=== PATIENT | female | born 1995 | race Caucasian/White ===

== ENCOUNTER 2016-10-28 05:36 | Inpatient (IN) ==
[2016-10-28] MEDS ORDERED: STADOL IV PRN (05:38)
[2016-10-28] MEDS ORDERED: KEFZOL 1 GM/D5W 1 GM/50 ML IVPB IV PRN (05:38)
[2016-10-28] MEDS ORDERED: PEPCID IV PRN (05:38)
[2016-10-28] MEDS ORDERED: TYLENOL PO PRN (05:38)
[2016-10-28] MEDS ORDERED: PEPCID PO PRN (05:38)
[2016-10-28] MEDS ORDERED: ZOFRAN IV PRN (05:38)
[2016-10-28] MEDS ORDERED: SODIUM CHLORIDE 0.9% INJ SCH (05:45)
[2016-10-28] MEDS: LR 1,000 ML IV SCH ×2 (06:25→08:30)
[2016-10-28 06:41] LABS: MANUAL DIFF NEEDED? NO
[2016-10-28 06:52] LABS: BASO% 0.5 % (0.0-0.8); EOS# 0.27 X1000 (0.0-0.7); EOS% 3.1 % (0.0-10.0); HEMATOCRIT 31.4 % (37.0-47.0); IMM GRAN# 0.05 X1000 (0.0-0.04); IMM GRAN% 0.6 % (0.0-0.5); LYMPH% 30.6 % (20.5-51.1); MCHC 31.8 g/dL (33-37); MCV 72.4 FL (81-99); MONO# 0.79 X1000 (0.11-0.59); NEUT% 56.2 % (42.2-75.2); PLT 217 X1000 (130-400); RBC 4.34 XMIL (4.2-5.4)
[2016-10-28 06:57] LABS: URINE SOURCE VOIDED
[2016-10-28 07:03] LABS: UR AMPHETAMINES QUAL NONE DETECTED (NONE DETECT); UR BARBITUATES QUAL NONE DETECTED (NONE DETECT); UR BENZODIAZEPIN QUAL NONE DETECTED (NONE DETECT); UR CANNABINOIDS QUAL NONE DETECTED (NONE DETECT); UR COCAINE QUAL NONE DETECTED (NONE DETECT); UR MDMA QUAL NONE DETECTED (NONE DETECT); UR METHADONE QUAL NONE DETECTED (NONE DETECT); UR METHAMPHETAMINE QUAL NONE DETECTED (NONE DETECT); UR OPIATES QUAL NONE DETECTED (NONE DETECT); UR OXYCODONE QUAL NONE DETECTED (NONE DETECT); UR PCP QUAL NONE DETECTED (NONE DETECT); UR TCA QUAL NONE DETECTED (NONE DETECT)
[2016-10-28 07:08] LABS: BILIRUBIN URINE NEGATIVE (NEGATIVE); CLARITY CLEAR (CLEAR); COLOR YELLOW; GLUCOSE URINE NEGATIVE (NEGATIVE)
[2016-10-28] MEDS ORDERED: FENTANYL-BUPIV-NS 2 MCG-0.1% 200 ML EPIDURAL PRN (07:14)
[2016-10-28] MEDS: PITOCIN 30 UNITS/LR 30 UNITS/500 ML IV.SOLN IV SCH ×2 (07:21→08:00)
[2016-10-28] MEDS ORDERED: MINERAL OIL ONE (09:40)
[2016-10-28] MEDS ORDERED: XYLOCAINE-MPF 1% ONE (09:40)
[2016-10-28] MEDS ORDERED: PITOCIN 20 UNITS/LR 20 UNITS/1,000 ML IV.SOLN ONE (09:40)
[2016-10-28 09:41] LABS: BLOOD URINE 4+ (NEGATIVE); LEUKOCYTES URINE 2+ (NEGATIVE); NITRITE URINE NEGATIVE (NEGATIVE); PROTEIN URINE NEGATIVE (NEGATIVE); UROBILINOGEN URINE NORMAL
[2016-10-28] MEDS ORDERED: MINERAL OIL TOP ONE (12:58)
[2016-10-28] MEDS ORDERED: XYLOCAINE-MPF 1% INJ ONE (12:58)
--- NOTE | 2016-10-28 16:43 | OPERATIVE NOTE ---
PROCEDURE DATE: 10/28/2016 PREDELIVERY DIAGNOSES: 1. Intrauterine at 39 weeks. 2. Late care. 3. Former smoker. POST DELIVERY DIAGNOSES: 1. Intrauterine at 39 weeks. 2. Late care. 3. Former smoker. PROCEDURE: Vaginal delivery. PHYSICIAN: Dr. Villegas. ANESTHESIA: and an epidural. FINDINGS: Viable female 6 pounds 14 ounces, 9-10 Apgars. Placenta was spontaneous and intact. Cord was 3 vessels. There were no lacerations or tears and all counts were correct. Please refer to Ms. Sanchez's records. She started at 31 weeks. No abnormal laboratory values. O positive blood type. Immune to rubella. She stated that she is former smoker however she is not smoking at this time. Her GBS was negative and ultrasound matched her dates so due date was established to be 11/03 so this morning she was admitted, started on Pitocin, artificially ruptured. Received epidural anesthesia. Made steady progress. Before becoming complete at approximately 3:30 began pushing soon after crowned at which point the bed was broken down. She was prepped and draped. With continued pushing she delivered a viable female , occiput anterior over an intact perineum. Once head delivered anterior shoulder which was her left shoulder some difficulty delivering it however it did slide under the pubic bone and baby delivered without distress and placed on mother's abdomen. Cord doubly clamped and cut. Care of infant taken over by nursery personnel. Cord blood was obtained and a 3-vessel cord was noted then gentle traction on the cord resulted in delivery of the placenta after approximately 4 minutes. It was inspected and found to be intact. After this was done inspection of the vagina and perineum did not reveal any clots or lacerations or foreign material. All counts were correct. ESTIMATED BLOOD LOSS: 100 mL. Expect routine . cc: Espinoza Villegas MD
[2016-10-28] MEDS ORDERED: PITOCIN IM PRN (16:52)
[2016-10-28] MEDS ORDERED: BENADRYL IV PRN (16:52)
[2016-10-28] MEDS ORDERED: XYLOCAINE-MPF 1% INJ PRN (16:52)
[2016-10-28] MEDS ORDERED: AMBIEN PO PRN (16:52)
[2016-10-28] MEDS ORDERED: HYDROXYZINE IM PRN (16:52)
[2016-10-28] MEDS ORDERED: PITOCIN 30 UNITS/LR 30 UNITS/500 ML IV.SOLN IV ONE (16:52)
[2016-10-28] MEDS ORDERED: PERI MEDS (DERMOPLAST/NUPERCAINAL/TUCKS) MISC PRN (16:52)
[2016-10-28] MEDS ORDERED: CYTOTEC PO PRN (16:52)
[2016-10-28] MEDS ORDERED: M-M-R II VACCINE SUBQ ONE (16:52)
[2016-10-28] MEDS ORDERED: MINERAL OIL PO PRN (16:52)
[2016-10-28] MEDS ORDERED: BOOSTRIX VACCINE IM ONE (16:52)
[2016-10-28] MEDS ORDERED: BENADRYL PO PRN (16:52)
[2016-10-28] MEDS ORDERED: PITOCIN 20 UNITS/LR 20 UNITS/1,000 ML IV.SOLN IV SCH (16:52)
[2016-10-28] MEDS ORDERED: NORCO-5 PO PRN (16:52)
[2016-10-28] MEDS ORDERED: HYDROXYZINE PO PRN (16:52)
[2016-10-28] MEDS: NORCO-10 PO PRN (18:59)
[2016-10-28] MEDS: MOTRIN PO PRN (18:59)
[2016-10-28] MEDS: PERICOLACE PO SCH (21:15)
[2016-10-29] MEDS: NORCO-10 PO PRN ×3 (04:43→23:30)
[2016-10-29 06:54] LABS: BASO% 0.5 % (0.0-0.8); EOS# 0.34 X1000 (0.0-0.7); EOS% 3.1 % (0.0-10.0); HEMATOCRIT 28.9 % (37.0-47.0); HEMOGLOBIN 9.1 g/dL (12.0-16.0); IMM GRAN# 0.03 X1000 (0.0-0.04); IMM GRAN% 0.3 % (0.0-0.5); LYMPH# 2.86 X1000 (1.2-3.4); LYMPH% 25.8 % (20.5-51.1); MANUAL DIFF NEEDED? YES; MCHC 31.5 g/dL (33-37); MONO# 0.98 X1000 (0.11-0.59); MONO% 8.9 % (1.7-9.3); MPV 11.3 FL (7.4-10.4); NEUT% 61.4 % (42.2-75.2); PLT 212 X1000 (130-400); RBC 3.96 XMIL (4.2-5.4)
[2016-10-29 07:47] LABS: BANDS 1 % (0-1); LYMPHS 24 % (21-51); MONO 3 % (1-9)
[2016-10-29] MEDS: PRECARE PO SCH (08:23)
[2016-10-29] MEDS: FERROUS SULFATE PO SCH (08:23)
[2016-10-29] MEDS: MOTRIN PO PRN ×2 (08:23→17:12)
[2016-10-29] MEDS: PERICOLACE PO SCH (20:41)
[2016-10-30 07:43] VITALS: BP 106/70
[2016-10-30] MEDS: PRECARE PO SCH (10:02)
[2016-10-30] MEDS: FERROUS SULFATE PO SCH (10:02)
[2016-10-30] MEDS: MOTRIN PO PRN (10:02)
== END 2016-10-30 12:15 | disposition home or self-care (01) ==
LOC: P.LD 05:36 → P.WC 20:03
PROVIDERS: ADMIT Obstetrics & Gynecology; ATTEND Obstetrics & Gynecology